=== PATIENT | female | born 1945 | race Caucasian/White ===

== ENCOUNTER 2016-09-04 06:05 | Inpatient (IN) | payer OTHER ==
[2016-08-20 13:43] VITALS: BMI 31.0
--- NOTE | 2016-08-20 14:09 | PAT Medication Instructions ---
Service Date Aug 20, 2016. Current Home Medication List Atorvastatin (Lipitor), 80 MG PO QPM Cholecalciferol (Vitamin D), 2,000 INTERUNIT PO QAM Fluoxetine (Prozac), 20 MG PO QAM Krill Oil (Megared [place]-3 Krill Oil 500 mg), 1 TAB PO QPM Meloxicam (Mobic), 7.5 MG PO DAILY PRN for Pain Raloxifene (Evista), 1 TAB PO QAM Medication Instructions For Your Scheduled Surgery - Hold the following medications 2 weeks prior to surgery: Krill Oil (Megared [place]-3 Krill Oil 500 mg), 1 TAB PO QPM - Hold the following medications the morning of surgery: Meloxicam (Mobic), 7.5 MG PO DAILY PRN for Pain (otherwise okay to continue per surgeon) Cholecalciferol (Vitamin D), 2,000 INTERUNIT PO QAM Raloxifene (Evista), 1 TAB PO QAM - Take the following medications the morning of surgery with a sip of water OTHERWISE NOTHING TO EAT OR DRINK AFTER MIDNIGHT: Fluoxetine (Prozac), 20 MG PO QAM - Take the following medications as scheduled the night before surgery: Atorvastatin (Lipitor), 80 MG PO QPM If you have any questions please call us at [phone] or [phone] or [phone]
[2016-08-20 14:42] LABS: BASO % 0.4 %; BASO ABS # 0.03 K/uL (0-0.2); COMPLETE YES; EOS % 1.7 %; HEMATOCRIT 38.5 % (37-47); IG% 0.3 %; LYMPH % 37.8 %; LYMPH ABS # 2.74 K/uL (1.2-3.4); MEAN CELL VOLUME 91.9 fL (80-100); MEAN CORPUSCULAR HEMOGLOBIN 31.3 pg (25-34); MEAN PLATELET VOLUME 8.7 fL (7.4-10.4); MONO % 6.8 %; PLATELET COUNT 368 K/uL (130-400); RED BLOOD COUNT 4.19 M/uL (4.2-5.4); WHITE BLOOD COUNT 7.24 K/uL (4.8-10.8)
[2016-08-20 14:43] LABS: URINE APPEARANCE CLEAR (CLEAR); URINE BILIRUBIN NEG (NEG); URINE COLOR YELLOW; URINE EPITHELIAL CELL AUTO >30 /lpf (0-5); URINE NITRITE NEG (NEG); URINE SPECIFIC GRAVITY 1.021 (1.000-1.030); UROBILINOGEN NEG (NEG)
[2016-08-20 14:50] LABS: MANUAL MICROSCOPIC REQUIRED? NO; REVIEW REQ? NO
[2016-08-20 14:51] LABS: INR 0.9 (0.9-1.1)
--- NOTE | 2016-08-20 15:15 | DIAGNOSTIC IMAGING REPORT ---
CHEST 2 VIEWS ROUTINE CLINICAL HISTORY: Preoperative chest COMPARISON STUDY: No previous studies for comparison. FINDINGS: The cardiac and mediastinal contours are normal. There is no evidence of focal pulmonary consolidation. There is no evidence of failure. No pleural effusions are visualized.[ IMPRESSION: No active disease in the chest. Electronically signed by: Henrik Moreno M.D. 08/20/2016 3:13 PM Dictated Date/Time: 08/20/2016 3:13 PM
[2016-08-20 15:21] LABS: BUN/CREATININE RATIO 16.3 (10-20); CALCIUM 9.1 mg/dl (8.5-10.1); CREATININE 0.87 mg/dl (0.60-1.20); POTASSIUM 4.5 mmol/L (3.5-5.1)
[2016-08-21 06:34] LABS: ESTIMATED AVERAGE GLUCOSE 114 mg/dl; HA1C FLAG Normal (Normal)
--- NOTE | 2016-08-28 14:38 | HISTORY & PHYSICAL EXAMINATION ---
DATE OF ADMISSION: 09/04/2016 PROCEDURE: Right knee replacement. HISTORY OF PRESENT ILLNESS: The patient is a pleasant female who presents for preoperative evaluation prior to right knee replacement. She states she has been having pain in this knee for several years now, which has gradually worsened. It has now gotten to the point it is affecting her daily activities including walking, standing, going up and down steps. She has tried previous oral anti-inflammatories, cortisone injections, viscosupplementation without relief. She had a previous knee arthroscopy. At this point in time, has failed conservative measures and would like to proceed with a right total knee replacement. PAST MEDICAL HISTORY: High cholesterol. ALLERGIES: 1. SULFA. 2. MORPHINE. CURRENT MEDICATIONS: 1. Mobic as needed. 2. Lipitor 80 mg daily. 3. Prozac 20 mg daily. PAST SURGICAL HISTORY: 1. Right knee arthroscopy, partial meniscectomy. 2. Deviated septum. 3. Total abdominal hysterectomy. FAMILY HISTORY: Noncontributory. SOCIAL HISTORY: The patient denies a history of smoking or tobacco use. No alcohol consumption. REVIEW OF SYSTEMS: Otherwise negative. Please see HPI for pertinent positives. PHYSICAL EXAMINATION: GENERAL: Pleasant 71-year-old female in no acute distress, alert and oriented x3. VITAL SIGNS: She is 5 feet 3 inches, weighs 170 pounds. HEAD, EYES, EARS, NOSE, AND THROAT: Normocephalic, atraumatic. CARDIAC: Regular rate and rhythm. No murmurs or gallops appreciated. Resting pulse 80 beats per minute. LUNGS: Clear to auscultation without rales or wheeze bilaterally. ABDOMEN: Soft, nontender. Bowel sounds present. EXTREMITIES: Right lower extremity neurovascularly intact. Calves are soft and nontender. DP pulse +2. Demonstrates good quad tone. Straight leg raise without lag. No erythema or warmth. Had mild effusion. Positive crepitation with motion, range of motion is 0/3/115. IMAGING: Reviewed of the right knee show findings consistent with degenerative joint disease including joint space narrowing, subchondral sclerosis, osteophyte formation noted. IMPRESSION: 1. Right knee degenerative joint disease. 2. High cholesterol. PLAN: Further care discussed with patient. At this point in time, has failed conservative measures and would like to proceed with a right knee replacement. Will place on aspirin 81 mg p.o. b.i.d. for a month postop. Otherwise, has no other questions or concerns.
[~2016-09-04] VITALS: Ht 162.6 cm; Wt 81.8 kg
[2016-09-04] VITALS (10 sets, daily range): BP systolic 108–184; BP diastolic 52–86; PULSE 70–89; TEMP 36.3–36.7; O2SAT 96–99; Ht 162.6 cm; Wt 81.8 kg
[~2016-09-04 06:05] MED LIST: ACETAMINOPHEN 500 MG TAB PO SCH; ATOR-26 PO; CEFAZOLIN 2000 MG/60 ML D5W 60 ML IV SCH; CHOL100010 PO; DEXAMETHASONE 4 MG TAB PO SCH; EVS60 PO; FAMOTIDINE 20 MG TAB PO SCH; FLUO20CA35 PO; GABAPENTIN 300 MG CAP PO SCH; KRIL1CAP18 PO; LACTATED RINGER'S 1000ML IV SCH; MELO7.5T5 PO; METOCLOPRAMIDE HCL 10 MG TAB PO SCH; ROPIVACAINE 5MG/ML 30 ML 150 MG, BUPIVACAINE/EPINEPHR 0.5% MPF 30 ML, KETOROLAC TROMETH... INFIL SCH; TRANEXAMIC ACID INJ 1,000 MG in SODIUM CHLORIDE 0.9% 100ML 100 ML IV SCH
[2016-09-04] MEDS ORDERED: DOCU-94 PO (06:28)
[2016-09-04] MEDS: TRANEXAMIC ACID INJ 1,000 MG in SODIUM CHLORIDE 0.9% 100ML 100 ML IV SCH ×2 (06:30→08:19)
[2016-09-04] MEDS ORDERED: BUPIVACAINE 0.5 % 5 MG/1 ML PF 10ML VIAL ONE (06:32)
[2016-09-04] MEDS ORDERED: BUPIVACAINE/EPINEPHRINE 0.25% 1:200,000 30 ML VIAL ONE (06:32)
[2016-09-04] MEDS ORDERED: POVIDONE-IODINE OP SOLN 30 ML BTL ONE (07:02)
[2016-09-04] MEDS ORDERED: ORTHO JOINT ANESTHETIC ONE (07:02)
[2016-09-04] MEDS ORDERED: BACITRACIN 50000 UNIT VIAL ONE (07:03)
[2016-09-04] MEDS ORDERED: MIDAZOLAM HCL 1 MG/ML 2ML VIAL ONE (07:07)
[2016-09-04] MEDS ORDERED: FENTANYL CITRATE INJ 50 MCG/1 ML 2 ML VIAL ONE (07:07)
--- NOTE | 2016-09-04 07:14 | History & Physical Bridge Note ---
H&P Re-Evaluation Bridge Note: I have examined the patient, reviewed the History & Physical and in the interval since the performance of the History & Physical I have noted the following changes of clinical significance: No changes noted
--- NOTE | 2016-09-04 07:24 | History & Physical Bridge Note ---
H&P Re-Evaluation Bridge Note: I have examined the patient, reviewed the History & Physical and in the interval since the performance of the History & Physical I have noted the following changes of clinical significance: patient also with complaints of mortons neuroma left foot 3-4 interspace will inject
[2016-09-04] MEDS ORDERED: PHENYLEPHRINE 100MCG/ML 5ML SYR IV PRN (07:45)
[2016-09-04] MEDS ORDERED: ONDANSETRON INJ 2 MG/ML 2 ML VIAL IV PRN ×2 (07:45→10:15)
[2016-09-04] MEDS ORDERED: FENTANYL CITRATE INJ 50 MCG/1 ML 2 ML VIAL IV PRN (07:45)
[2016-09-04] MEDS ORDERED: LABETALOL HCL IV 5 MG/ML 20ML IV PRN (07:45)
[2016-09-04] MEDS ORDERED: MEPERIDINE HCL 25 MG/ML CARP IV PRN (07:45)
[2016-09-04] MEDS ORDERED: ATROPINE SULFATE 0.1 MG/ML 5ML SYR IV PRN (07:45)
[2016-09-04] MEDS ORDERED: EpHEDrine SULFATE INJ 50 MG/ML AMP IV PRN (07:45)
[2016-09-04] MEDS ORDERED: NALOXONE HCL 0.4 MG/1 ML VIAL/CARP IV PRN (07:45)
[2016-09-04] MEDS ORDERED: FLUMAZENIL 0.1 MG/1 ML 10 ML VIAL IV PRN (07:45)
[2016-09-04] MEDS ORDERED: METHYLPREDNISOLONE ACETATE 80 MG/ML VIAL ONE (08:40)
[2016-09-04] MEDS ORDERED: LIDOCAINE HCL 1% 20 ML VIAL ONE (08:40)
[2016-09-04] MEDS ORDERED: LIDOCAINE HCL 2% 2 ML VIAL (20MG/ML) ONE (08:48)
[2016-09-04] MEDS ORDERED: PROPOFOL IV EMULSION 10 MG/ML 20 ML VIAL IV ONE ×2 (08:48→09:05)
--- NOTE | 2016-09-04 09:25 | [facility] Post Operative Brief Note ---
Immediate Operative Summary Operative Date Sep 04, 2016. Pre-Operative Diagnosis Right knee degenerative joint disease mortons neuroma 3-4 interspace left foot Post-Operative Diagnosis same Procedure(s) Performed Right knee total arthoplasty inject neuroma left foot Surgeon Dr. Quintana Saw Filer Surgeon(s) Manfred Truong PA-C Estimated Blood Loss 10 mL Findings severe djd rt knee neuroma lt foot Specimens A: Right knee bone and tissue Complication(s) None Disposition Recovery Room / PACU
--- NOTE | 2016-09-04 09:51 | OPERATIVE REPORT ---
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 POSTOPERATIVE DIAGNOSIS: Same. PROCEDURE: Right total knee arthroplasty utilizing Laughlin \T\ Nephew Journey II patient matched block knee size 4 femur, 3 tibia, 12 poly, 32 oval patella, injection left third and fourth intermetatarsal neuroma 80 mg Depo-Medrol, 4 mL of 1% plain lidocaine. SURGEON: Dr. Quintana. VETERINARY X RAY OPERATOR: Manfred Truong PA-C who was necessary for prepping, draping, retraction, wound closure of deep fascia, subQ and skin and was necessary for the case. ESTIMATED BLOOD LOSS: 10 mL. COMPLICATIONS: None. TOURNIQUET TIME: 45 minutes. OPERATION AND FINDINGS: PROCEDURE: The patient was properly prepped and draped in supine position for total knee arthroplasty after identifying the appropriate surgical site. An anterior midline incision was made through the subcutaneous tissues down to the region of the extensor mechanism. A medial parapatellar incision was subsequently made. Meticulous hemostasis was obtained and performed at all times. The patella having been subluxed lateralward, medial and lateral meniscal remnants were excised. The patellar cut was then initially made and was sized to the appropriate size. After subluxing the tibia forward the appropriate meniscal fragments having been removed the distal femur was then cut first utilizing a Laughlin \T\ Nephew block. The distal femoral cuts and chamfer cuts were all made under direct visualization and the proximal tibial osteotomy cut was also made utilizing Laughlin \T\ Nephew blocks and checked with an extramedullary guide. The appropriate trial components on the femur and tibia were placed. Appropriate trial spacers were used to check flexion and extension gaps. With flexion and extension gaps being equal, the components were then subsequently after thorough irrigation and debridement lavage components were then subsequently cemented in the following order: femur, tibia and patella. Exparel was used for intraoperative anesthesia, the medial parapatellar incision was closed utilizing #1 Vicryl, subQ was closed with 2-0 Vicryl, skin was closed with skin clips. A sterile compression dressing was placed. In addition to this I also injected the left third and fourth metatarsal Rockwell's neuroma with 80 mg of Depo-Medrol and 4 mL of 1% plain lidocaine. The patient tolerated the procedure well and taken to the recovery room in stable condition. Due to the complex nature of the procedure, the entire surgery was performed with the operational assistance of Manfred Truong PA-C. The investment sales assistant, under direct supervision, was involved in the actual performance of all aspects of the surgical procedure including hemostasis, tissue retraction and incision, instrument management, patient positioning, and wound closure. I attest to the content of the Intraoperative Record and any orders documented therein. Any exceptio ns are noted below.
[2016-09-04] MEDS ORDERED: HYDROmorphone INJ 0.5 MG/0.5 ML SYR IV PRN (10:15)
[2016-09-04] MEDS ORDERED: ZOLPIDEM TARTRATE 5 MG TAB PO PRN (10:15)
[2016-09-04] MEDS ORDERED: ALUMINUM/MAGNESIUM/SIMETH (MAALOX MAX) 30 ML UDC PO PRN (10:15)
[2016-09-04] MEDS ORDERED: BISACODYL 10 MG SUPP PR PRN (10:15)
[2016-09-04] MEDS ORDERED: DiphenhydrAMINE HCL 50 MG/ML VIAL IV PRN (10:15)
[2016-09-04] MEDS ORDERED: MAGNESIUM HYDROXIDE SUSP 30 ML UDC PO PRN (10:15)
--- NOTE | 2016-09-04 10:27 | Anesthesiology Progress Note ---
Anesthesia Post Op Note Date & Time Sep 04, 2016 at 10:28 Vital Signs Pain Intensity: 0 Vital Signs Past 12 Hours Date Time Temp Pulse Resp B/P Pulse Ox O2 Delivery O2 Flow Rate FiO2 09/04/16 10:20 72 16 112/57 100 Room Air 2 09/04/16 10:10 76 16 112/53 100 Room Air 2 09/04/16 10:00 73 16 106/53 100 Mask 10 09/04/16 09:53 36.7 75 16 95/48 99 Mask 10 09/04/16 06:28 36.7 89 18 184/80 96 Room Air Notes Mental Status: alert / awake / arousable, participated in evaluation Pt Amnestic to Procedure: Yes Nausea / Vomiting: adequately controlled Pain: adequately controlled Airway Patency, RR, SpO2: stable & adequate BP & HR: stable & adequate Hydration State: stable & adequate Neuraxial Anesthesia: was administered, sensory block is resolving Anesthetic Complications: no major complications apparent
--- NOTE | 2016-09-04 10:59 | DIAGNOSTIC IMAGING REPORT ---
RIGHT KNEE 2 VIEWS History: Right total knee arthroplasty. Degenerative arthritis. Postop. FINDINGS: The patient is status post a right total knee arthroplasty. The hardware is intact. No fracture or dislocation. Skin naa and surgical drains are in place. On the AP view there is an 8 mm linear radiopaque foreign body along the lateral soft tissues of the knee. IMPRESSION: Right total knee arthroplasty. No evidence for hardware complication. There is an 8 mm linear radiopaque foreign body within the lateral soft tissues of the knee. This could represent a needle tip. Clinical correlation recommended. Electronically signed by: Earl Hale M.D. 09/04/2016 10:57 AM Dictated Date/Time: 09/04/2016 10:56 AM
[2016-09-04] MEDS: D5W AND 1/2NSS + 20MEQ KCL 1,000 ML IV SCH ×2 (12:08→21:48)
[2016-09-04] MEDS: KETOROLAC TROMETHAMINE 15 MG/ML VIAL IV. SCH ×2 (12:10→17:49)
[2016-09-04] MEDS: FERROUS GLUCONATE 324 MG TAB PO SCH ×2 (13:17→17:48)
[2016-09-04] MEDS: ACETAMINOPHEN 500 MG TAB PO SCH ×2 (14:17→21:48)
[2016-09-04] MEDS: CEFAZOLIN IV 2,000 MG in DEXTROSE 5% 50ML 50 ML IV SCH (17:03)
[2016-09-04] MEDS: SENNA 8.6 MG TAB PO SCH (21:49)
[2016-09-04] MEDS: ATORVASTATIN 40 MG TAB PO SCH (21:49)
[2016-09-04] MEDS: OXYCODONE HCL 10 MG TABCR (OXYCONTIN) PO SCH (21:49)
[2016-09-04] MEDS: ASPIRIN 81 MG ECTAB PO SCH (21:49)
[2016-09-04] MEDS: DOCUSATE SODIUM 100 MG CAP PO SCH (21:49)
[2016-09-05] VITALS (7 sets, daily range): BP systolic 124–155; BP diastolic 66–85; PULSE 71–79; TEMP 36.3–36.7; O2SAT 96–99
[2016-09-05] MEDS: KETOROLAC TROMETHAMINE 15 MG/ML VIAL IV. SCH ×2 (00:08→05:41)
[2016-09-05] MEDS: CEFAZOLIN IV 2,000 MG in DEXTROSE 5% 50ML 50 ML IV SCH (00:14)
[2016-09-05] MEDS: ACETAMINOPHEN 500 MG TAB PO SCH ×3 (05:40→21:53)
[2016-09-05 06:15] LABS: HEMATOCRIT 32.6 % (37-47); MEAN CELL VOLUME 91.8 fL (80-100); MEAN CORPUSCULAR HEMOGLOBIN 31.3 pg (25-34); MEAN PLATELET VOLUME 8.7 fL (7.4-10.4); PLATELET COUNT 283 K/uL (130-400); RED BLOOD COUNT 3.55 M/uL (4.2-5.4); WHITE BLOOD COUNT 15.06 K/uL (4.8-10.8)
[2016-09-05 06:46] LABS: CALCIUM 8.4 mg/dl (8.5-10.1); CREATININE 0.85 mg/dl (0.60-1.20); POTASSIUM 4.1 mmol/L (3.5-5.1)
--- NOTE | 2016-09-05 07:19 | Orthopedic Progress Note ---
Orthopedic Progress Note Date of Service Sep 05, 2016. Subjective Post OP Day: 1 (Right TKA) Reports: feeling well, pain controlled w PO medications, Denies: SOB, calf pain , chest pain, complaints, light headedness, nausea / vomiting Objective calves soft nontender, N/V intact, capillary refill less than 2 sec., dressing C /D/I, A&O x3, toes mobile, hemovac drainage (150cc/8 hours) Date Time Temp Pulse Resp B/P Pulse Ox O2 Delivery O2 Flow Rate FiO2 09/05/16 03:10 36.7 71 16 124/67 96 Room Air 09/04/16 23:23 36.5 71 16 108/52 98 Room Air 09/04/16 20:48 36.6 74 16 137/72 96 Room Air 09/04/16 15:22 96 Room Air 09/04/16 14:57 36.7 73 16 115/66 97 Nasal Cannula 2.0 09/04/16 13:50 36.4 79 16 128/70 97 Nasal Cannula 2.0 09/04/16 12:52 78 16 124/72 99 Nasal Cannula 2.0 09/04/16 11:50 36.5 72 16 144/86 99 Nasal Cannula 2.0 09/04/16 11:16 36.3 70 18 123/68 98 Nasal Cannula 2.0 09/04/16 10:50 36.5 70 16 122/67 97 Nasal Cannula 2.0 09/04/16 10:50 97 Nasal Cannula 2.0 09/04/16 10:50 Nasal Cannula 2.0 09/04/16 10:30 37 72 16 126/56 100 Room Air 2 09/04/16 10:20 72 16 112/57 100 Room Air 2 09/04/16 10:10 76 16 112/53 100 Room Air 2 09/04/16 10:00 73 16 106/53 100 Mask 10 09/04/16 09:53 36.7 75 16 95/48 99 Mask 10 Laboratory Results 24 Hours: Test 09/05/16 05:20 Hematocrit 32.6 % Hemoglobin 11.1 g/dL Assessment & Plan Assessment: POD #1 s/p Right TKA -pt/ot -dvt proph with roxann/scd/asa -poss d/c home later today with OPPT if stable Discharge Planning Discharge Planning: home with oppt DVT Prophylaxis: TEDs, SCDs, ASA Therapy: Physical Therapy
--- NOTE | 2016-09-05 07:24 | Discharge Instructions ---
Discharge Instructions Date of Service Sep 05, 2016. Admission Reason for Admission: Right Knee Osteoarthritis Discharge Discharge Diagnosis / Problem: s/p Right total knee replacement Discharge Goals Goal(s): Decrease discomfort, Improve function, Increase independence Activity Recommendations Activity Limitations: as noted below Weightbearing Status: Right weightbearing (as tolerated) . Instructions / Follow-Up Instructions / Follow-Up ACTIVITY RECOMMENDATIONS: SELF CARE INSTRUCTIONS AFTER TOTAL KNEE REPLACEMENT A. You may need to continue a physical therapy program after discharge from the hospital. There are several options available to you. Your doctor will assist you in selecting the best one for you. 1. An out-patient facility 2 to 3 times a week for therapy or home therapy. 2. Continue working on all exercises taught to you in the hospital. Your goals should be to increase bending of your knee to 90 degrees and beyond and to fully straighten your knee. B. You may progress at your own pace from walking with a walker or crutches to a cane; then to no assistive devices. C. Make walking a part of your daily routine. Be up as much as comfortable with rest periods throughout the day. Rest with leg elevation is very important. Use the ice wrap frequently for the first 3-4 weeks. D. There are no restrictions on activities. You may ride in a car, shop, participate in spool fixer and all social activities. E. Wear the long elastic stockings (EDBBIE hose) 20 hours a day for 2 weeks after surgery. They can be removed several times a day for laundering and for a bath. F. You may shower, no tub baths until cleared by your doctor. SPECIAL CARE INSTRUCTIONS: VERY IMPORTANT TO READ AND REVIEW A. There are a few signs you need to watch for after you are home. Call [facility] if you notice any of the followin. Increased severe knee pain. Some pain is expected especially when you exercise. 2. Increased swelling in your leg or knee; pain or swelling of the calf muscle in either lower leg. 3. Any fluid drainage from the incision. 4. Shortness of breath or chest pain. B. Please call [facility] at if you have any concerns or questions about your operation or recovery. The doctor or his nurse will return your call promptly. C. You must take antibiotics before dental work, bladder, bowel or other surgery. Your doctor will provide you with a permanent care to carry describing this precaution. IMPORTANT: * REMEMBER TO TAKE ASPIRIN, 81 MG, TWICE DAILY FOR 4 WEEKS UNLESS OTHERWISE DIRECTED. THIS IS YOUR BLOOD THINNER. * HIGH RISK PATIENTS MAY BE PRESCRIBED A STRONGER BLOOD THINNER. THIS WILL BE PROVIDED AT DISCHARGE. * CALL IF INCREASED PAIN, REDNESS, DRAINAGE OR FEVER GREATER THAT 101. * WEAR DEBBIE HOSE 20 HOURS PER DAY FOR 2 WEEKS. * YOU MAY HAVE A LARGE BAND-AID LIKE DRESSING (SILVERON). THIS WILL REMAIN ON YOUR INCISION FOR 7 DAYS, THEN CAN BE REMOVED. IF INCISION IS LEAKING THROUGH DRESSING, CALL THE OFFICE . FOLLOW UP VISIT: If appointment is not already scheduled: Please call [facility] to make a follow-up appointment for 2 weeks after your surgery at . Current Hospital Diet Patient's current hospital diet: Regular Diet Discharge Diet Recommended Diet: Regular Diet Procedures Procedures Performed: Right knee total arthoplasty inject neuroma left foot Pending Studies Studies pending at discharge: no Laboratory Results Hemoglobin A1c Test 08/20/16 14:18 Range/Units Estimated Average Glucose 114 mg/dl Hemoglobin A1c 5.6 4.5-5.6 % Medical Emergencies . Who to Call and When: Medical Emergencies: If at any time you feel your situation is an emergency, please call [phone] immediately. . Non-Emergent Contact Non-Emergency issues call your: Primary Care Provider, Surgeon . "Provider Documentation" section prepared by Thomas Grant. VTE Core Measure Inpt VTE Proph given/why not?: Other Anticoagulation (ASA 81mg po bid x 1 month ), T.Tammy Mallory, SCD's [place] Drug Monitoring Program Search Results: patient reviewed within database, no issues identified
[2016-09-05] MEDS ORDERED: RXC5 PO (07:28)
[2016-09-05] MEDS ORDERED: ACET-1138 PO (07:28)
[2016-09-05] MEDS ORDERED: OXYSR10 PO (07:28)
[2016-09-05] MEDS ORDERED: ASPEC81 PO (07:28)
[2016-09-05] MEDS ORDERED: ONDA8TAB6 PO (07:28)
--- NOTE | 2016-09-05 08:00 | Anesthesiology Progress Note ---
Anesthesia Post Op Note Date & Time Sep 05, 2016 at 07:59 Vital Signs Pain Intensity: 0.0 Vital Signs Past 12 Hours Date Time Temp Pulse Resp B/P Pulse Ox O2 Delivery O2 Flow Rate FiO2 09/05/16 03:10 36.7 71 16 124/67 96 Room Air 09/04/16 23:23 36.5 71 16 108/52 98 Room Air 09/04/16 20:48 36.6 74 16 137/72 96 Room Air Notes Mental Status: alert / awake / arousable, participated in evaluation Pt Amnestic to Procedure: Yes Nausea / Vomiting: adequately controlled Pain: adequately controlled Airway Patency, RR, SpO2: stable & adequate BP & HR: stable & adequate Hydration State: stable & adequate Neuraxial Anesthesia: was administered, sensory block resolved Anesthetic Complications: no major complications apparent
[2016-09-05] MEDS: ASPIRIN 81 MG ECTAB PO SCH ×2 (09:24→20:45)
[2016-09-05] MEDS: FERROUS GLUCONATE 324 MG TAB PO SCH ×3 (09:24→17:54)
[2016-09-05] MEDS: DOCUSATE SODIUM 100 MG CAP PO SCH ×2 (09:24→20:45)
[2016-09-05] MEDS: MULTIVITAMIN TAB PO SCH (09:24)
[2016-09-05] MEDS: FLUOXETINE HCL 20 MG CAP PO SCH (09:24)
[2016-09-05] MEDS: PANTOprazole SOD 40 MG TAB PO SCH (09:24)
[2016-09-05] MEDS: CHOLECALCIFEROL 1000 INTER.UNIT TAB PO SCH (09:25)
[2016-09-05] MEDS: OXYCODONE HCL 10 MG TABCR (OXYCONTIN) PO SCH ×2 (09:25→20:45)
[2016-09-05] MEDS: D5W AND 1/2NSS + 20MEQ KCL 1,000 ML IV SCH (09:26)
--- NOTE | 2016-09-05 10:28 | Anesthesiology Progress Note ---
Anesthesia Post Op Note Date & Time Sep 05, 2016 at 10:28 Vital Signs Pain Intensity: 0.0 Vital Signs Past 12 Hours Date Time Temp Pulse Resp B/P Pulse Ox O2 Delivery O2 Flow Rate FiO2 09/05/16 08:11 36.5 79 16 132/78 98 Room Air 09/05/16 03:10 36.7 71 16 124/67 96 Room Air 09/04/16 23:23 36.5 71 16 108/52 98 Room Air Notes Mental Status: alert / awake / arousable, participated in evaluation Pt Amnestic to Procedure: Yes Nausea / Vomiting: adequately controlled Pain: adequately controlled Airway Patency, RR, SpO2: stable & adequate BP & HR: stable & adequate Hydration State: stable & adequate Neuraxial Anesthesia: sensory block resolved Anesthetic Complications: no major complications apparent
[2016-09-05] MEDS: OXYCODONE HCL IR 5 MG TAB (IMMEDIATE RELEASE) PO PRN ×3 (14:09→22:35)
[2016-09-05] MEDS: SENNA 8.6 MG TAB PO SCH (20:45)
[2016-09-05] MEDS: ATORVASTATIN 40 MG TAB PO SCH (20:45)
[2016-09-06] MEDS: OXYCODONE HCL IR 5 MG TAB (IMMEDIATE RELEASE) PO PRN ×2 (03:06→08:57)
[2016-09-06] MEDS: ACETAMINOPHEN 500 MG TAB PO SCH (05:40)
[2016-09-06 07:29] VITALS: BP 127/70; PULSE 67; TEMP 36.5; O2SAT 96
[2016-09-06] MEDS: FERROUS GLUCONATE 324 MG TAB PO SCH (08:52)
[2016-09-06] MEDS: FLUOXETINE HCL 20 MG CAP PO SCH (08:52)
[2016-09-06] MEDS: CHOLECALCIFEROL 1000 INTER.UNIT TAB PO SCH (08:52)
[2016-09-06] MEDS: DOCUSATE SODIUM 100 MG CAP PO SCH (08:53)
[2016-09-06] MEDS: ASPIRIN 81 MG ECTAB PO SCH (08:53)
[2016-09-06] MEDS: PANTOprazole SOD 40 MG TAB PO SCH (08:53)
[2016-09-06] MEDS: MULTIVITAMIN TAB PO SCH (08:53)
[2016-09-06] MEDS: OXYCODONE HCL 10 MG TABCR (OXYCONTIN) PO SCH (08:58)
--- NOTE | 2016-09-06 09:11 | Orthopedic Progress Note ---
Orthopedic Progress Note Date of Service Sep 06, 2016. Subjective Post OP Day: 2 Reports: feeling well Objective N/V intact, dressing C/D/I, toes mobile Date Time Temp Pulse Resp B/P Pulse Ox O2 Delivery O2 Flow Rate FiO2 09/06/16 07:47 Room Air 09/06/16 07:29 36.5 67 16 127/70 96 Room Air 09/05/16 23:17 36.5 78 16 130/66 97 Room Air 09/05/16 22:40 Room Air 09/05/16 16:00 99 Room Air 09/05/16 15:38 36.4 71 16 144/79 99 Room Air 09/05/16 11:52 36.3 71 16 155/85 96 Room Air 09/05/16 11:09 36.5 79 16 98 Room Air Nasal Cannula Assessment & Plan Assessment: POD #2 s/p Right TKA -pt/ot -dvt proph with roxann/scd/asa -poss d/c home today with OPPT if stable Discharge Planning Discharge Planning: home with oppt DVT Prophylaxis: TEDs, SCDs, ASA Therapy: Physical Therapy
--- NOTE | 2016-09-11 15:14 | DISCHARGE SUMMARY ---
DISCHARGE DIAGNOSIS: Degenerative joint disease, right knee. SECONDARY DIAGNOSIS: Hypercholesterolemia. CONSULTS: None. COMPLICATIONS: None. PROCEDURES: Right total knee arthroplasty performed by Dr. Quintana on 09/04/2016. BRIEF HISTORY: As dictated in history and physical. HOSPITAL SUMMARY: The patient was admitted on the above-noted date and had the above-noted surgery performed which she tolerated well. On the first postoperative day, patient was feeling well and pain was controlled. She had no complaints and denied shortness of breath, calf pain, chest pain or lightheadedness. Calves were soft and nontender, neurovascularly intact. Capillary refill was less than 2 seconds. Dressings clean, dry and intact. Toes were mobile. Vital signs were stable and she was afebrile. Hemoglobin was 11.1 and the patient was started on physical therapy protocol and continued on DVT prophylaxis and pain management. By her second postoperative day, she was feeling well and had no complaints. Neurovascularly intact. Dressings clean, dry and intact. Toes were mobile. Vital signs were stable. She was afebrile. She was progressing well with physical therapy and was remaining stable and it was felt she be discharged to home with outpatient PT. For further review, please see chart. LABORATORY AND X-RAY DATA: As per chart. DISCHARGE INSTRUCTIONS: The patient was discharged to home in satisfactory condition on 09/06/2016. DIET: Regular. ACTIVITY: Follow TK instruction sheets and special care instructions as noted. Weightbearing as tolerated, right lower extremity. FOLLOWUP: With Dr. Quintana in 2 weeks. The patient to call for appointment if one has not been made for you. DISCHARGE MEDICATIONS: Acetaminophen 1000 mg p.o. q. 8 hours, aspirin 81 mg p.o. b.i.d., Zofran 8 mg p.o. q. 8 hours p.r.n., OxyContin 10 mg p.o. q. 12 hours, oxycodone 5-10 mg p.o. q. 4 hours p.r.n. Resume taking atorvastatin 80 mg p.o. q.p.m., vitamin D 2000 international units p.o. q.a.m., Colace 100 mg 3 caplets p.o. daily, Prozac 20 mg p.o. q.a.m. Stop taking Krill oil, Meloxicam, and raloxifene.
== END 2016-09-06 11:00 | disposition home or self-care (01) | DRG 470 ==
LOC: ENRESERVDT → ENRESERVTM → C.ACU 06:05 → C.3E 07:00
PROVIDERS: ADMIT Orthopaedic Surgery; ATTEND Orthopaedic Surgery
PROC: 3E0T33Z Introduction of Anti-inflammatory into Peripheral Nerves and Plexi, Percutaneous Approach (ICD-10-PCS; principal; 2016-09-04 08:15)
PROC: 3E0T3BZ Introduction of Anesthetic Agent into Peripheral Nerves and Plexi, Percutaneous Approach (ICD-10-PCS; principal; 2016-09-04 08:15)
PROC: 0SRC0J9 Replacement of Right Knee Joint with Synthetic Substitute, Cemented, Open Approach (ICD-10-PCS; principal; 2016-09-04 08:15)
DX: M17.11 Unilateral primary osteoarthritis, right knee (principal); G57.61 Lesion of plantar nerve, right lower limb; M25.461 Effusion, right knee; E78.00 Pure hypercholesterolemia, unspecified; M81.0 Age-related osteoporosis without current pathological fracture; E66.9 Obesity, unspecified; Z68.31 Body mass index [BMI] 31.0-31.9, adult; Z85.42 Personal history of malignant neoplasm of other parts of uterus; Z79.1 Long term (current) use of non-steroidal anti-inflammatories (NSAID); Z79.810 Long term (current) use of selective estrogen receptor modulators (SERMs); Z79.899 Other long term (current) drug therapy